=== PATIENT | female | born 1935 | race Caucasian/White ===

== ENCOUNTER → 2018-02-04 | Outpatient (CLI) | payer MEDICARE ==
[~2018-02-04] MED LIST: ALBU8.5H IH; AMIO200T47 PO; CALC-488 PO; CITA-157 PO; FLUINH INH; FLUT16SP19 NS; FURO-45 PO; GLUC1TAB13 PO; HYDR-2966 PO; METO-253 PO; MULT-865 PO; POTA-53 PO; WARF5TAB23 PO
[2018-02-04 14:18] LABS: PLATELET COUNT, AUTOMATED 205 K/uL (150-450)
== END ==
LOC: LAB 13:56
PROVIDERS: ATTEND Internal Medicine
DX: I48.91 Unspecified atrial fibrillation (principal); I10 Essential (primary) hypertension; I50.9 Heart failure, unspecified
CPT/HCPCS: 36415; 82040; 82247; 82310; 82374; 82435; 82565; 82947; 83880; 84075; 84132; 84155; 84295; 84439; 84443; 84450; 84460; 84520; 85025

== ENCOUNTER → 2018-02-18 | Outpatient (CLI) | payer MEDICARE ==
[2018-02-18 10:24] LABS: INR 2.06
== END ==
LOC: LAB 09:41
PROVIDERS: ATTEND Internal Medicine
DX: I50.9 Heart failure, unspecified (principal); I48.91 Unspecified atrial fibrillation; I10 Essential (primary) hypertension; I48.0 Paroxysmal atrial fibrillation
CPT/HCPCS: 36415; 82040; 82247; 82310; 82374; 82435; 82565; 82947; 83880; 84075; 84132; 84155; 84295; 84450; 84460; 84520; 85610

== ENCOUNTER → 2018-02-25 | Outpatient (CLI) | payer MEDICARE ==
[2018-02-25 08:48] LABS: PLATELET COUNT, AUTOMATED 165 K/uL (150-450)
[2018-02-25 08:51] LABS: INR 2.49
--- NOTE | 2018-02-25 14:00 | EKG ---
FACILITY: [facility] [place] PATIENT NAME: HERNANDEZ TORRES : [id number] MR: [id number] V: [id number] EXAM DATE: ORDERING PHYSICIAN: DK LAGUNAS TECHNOLOGIST: NADEGE Test Reason : AFIB Blood Pressure : / mmHG Vent. Rate : 056 BPM Atrial Rate : 056 BPM P-R Int : 212 ms QRS Dur : 072 ms QT Int : 480 ms P-R-T Axes : 086 056 067 degrees QTc Int : 463 ms Sinus bradycardia with 1st degree AV block Otherwise normal ECG No previous ECGs available Referred By: Confirmed By:
== END ==
LOC: LAB 08:27
PROVIDERS: ATTEND Internal Medicine
DX: R00.1 Bradycardia, unspecified (principal); I44.0 Atrioventricular block, first degree; I48.0 Paroxysmal atrial fibrillation; I10 Essential (primary) hypertension; I50.33 Acute on chronic diastolic (congestive) heart failure; E05.90 Thyrotoxicosis, unspecified without thyrotoxic crisis or storm
CPT/HCPCS: 36415; 82040; 82247; 82310; 82374; 82435; 82565; 82947; 83880; 84075; 84132; 84155; 84295; 84439; 84443; 84450; 84460; 84481; 84520; 85025; 85610

== ENCOUNTER → 2018-03-05 | Outpatient (CLI) | payer MEDICARE ==
--- NOTE | 2018-03-07 06:53 | RT HOLTER TEST ---
FACILITY: [facility] PATIENT NAME: HERNANDEZ TORRES : [id number] MR: [id number] V: [id number] EXAM DATE: ORDERING PHYSICIAN: DK LAGUNAS TECHNOLOGIST: MEHDI Hook-up date: 2018-03-05 10:41:00 Duration: 24:24:00 Test Indications: AFIB, CHF Medications: 28325 QRS complexes 1 Ventricular ectopics which represent <1 % of total QRS comp. 323 Supraventricular ectopics which represent <1 % of total QRS comp. * Paced QRS complexes which represent % of total QRS comp. VENTRICULAR ECTOPY 1 Isolated 0 Bigeminal Cycles 0 Couplets 0 Runs 0 Beats in Runs * Beats LONGEST at * BPM at :: -- * Beats FASTEST at * BPM at :: -- SUPRAVENTRICULAR ECTOPY 283 Isolated 3 Couplets 8 Runs 34 Beats in Runs 6 Beats LONGEST at 69 BPM at 10:58:59 2018-03-06 3 Beats FASTEST at 70 BPM at 11:02:36 2018-03-06 HEART RATES 37 MIN at 22:43:50 2018-03-05 57 AVG 87 MAX at 10:21:33 2018-03-06 LONGEST RR 2.144 secs at 01:56:18 2018-03-06 S-T LEVELS Channel 1 -12.800 mm MIN at 10:41:00 2018-03-05 -12.800 mm MAX at 10:41:00 2018-03-05 Channel 2 -12.800 mm MIN at 10:41:00 2018-03-05 -12.800 mm MAX at 10:41:00 2018-03-05 Channel 3 -12.800 mm MIN at 10:41:00 2018-03-05 -12.800 mm MAX at 10:41:00 2018-03-05 Sinus rhythm Ectopic atrial rhythm Confirmed by RICO ADAME ([id number]) on 03/07/2018 6:53:12 AM Referred By: Overread By: RICO ADAME
== END ==
LOC: RESP 03:01
PROVIDERS: ATTEND Internal Medicine
DX: I48.91 Unspecified atrial fibrillation (principal); I50.9 Heart failure, unspecified
CPT/HCPCS: 93225; 93226

== ENCOUNTER 2018-03-07 00:34 | Outpatient (RCR) | payer MEDICARE ==
--- NOTE | 2018-03-08 10:20 | RADIOLOGY IMAGING REPORT ---
FACILITY: [facility] [place] PATIENT NAME: Eryn Nickerson : 1935 MR: [id number] V: [id number] EXAM DATE: ORDERING PHYSICIAN: DK LAGUANS TECHNOLOGIST: Location: [facility] Patient: Eryn Nickerson : 1935 Visit/Account:[id number] Date of Sevice: 03/08/2018 THYROID UPTAKE MUTILPLE HISTORY: Hyperthyroidism TECHNIQUE: 369 microcuries I-123 were administered orally. Radioiodine uptake values were calculated at 24 hours following tracer administration. Gamma camera images were obtained of the neck in variou s orientations. COMPARISON: None FINDINGS: Thyroid radioiodine uptake at 24 hours is 0.8% (normal range 15-40 %). Thyroid radioiodine uptake at six hours is 0.4% (normal range 5-15%) Size and shape: The thyroid gland is not well seen due to minimal iodine uptake Homogeneity: Not well evaluated due to limited iodine uptake Nodules: None evident. IMPRESSION: Markedly abnormally low 24 hour thyroid uptake 0.8% and six hour thyroid uptake of 0.4%. Of note by history the patient is on amiodarone therapy for tachycardia which can negatively impact the imaging results. Report Dictated By: Parris Mora MD at 03/08/2018 10:13 AM Report E-Signed By: Parris Mora MD at 03/08/2018 10:16 AM WSN:[email or web address]
== END 2018-03-07 18:00 | disposition home or self-care (01) ==
LOC: RAD 00:34 → EDSTATUS 14:56 → RAD 18:00
PROVIDERS: ATTEND Internal Medicine
DX: E05.90 Thyrotoxicosis, unspecified without thyrotoxic crisis or storm (principal)
CPT/HCPCS: 78012; A9516

== ENCOUNTER → 2018-03-19 | Outpatient (CLI) | payer MEDICARE ==
[2018-03-19 10:55] LABS: INR 2.02
== END ==
LOC: LAB 10:12
PROVIDERS: ATTEND Internal Medicine
DX: I48.91 Unspecified atrial fibrillation (principal); I50.9 Heart failure, unspecified; E05.90 Thyrotoxicosis, unspecified without thyrotoxic crisis or storm
CPT/HCPCS: 36415; 82040; 82247; 82310; 82374; 82435; 82565; 82947; 84075; 84132; 84155; 84295; 84439; 84443; 84450; 84460; 84520; 85610

== ENCOUNTER → 2018-04-18 | Outpatient (CLI) | payer MEDICARE ==
[~2018-04-18] MED LIST changes: -AMIO200T47 PO; +AMIO200T49 PO; +B2/V1TAB5 PO; +CHOL10005 PO; +MULT-16 PO; +OXYGENHOME INH; +[UNRECOGNIZED DRUG - CODE] PO
[2018-04-18 11:25] LABS: INR 1.64
== END ==
LOC: LAB 10:58
PROVIDERS: ATTEND Internal Medicine
DX: I48.91 Unspecified atrial fibrillation (principal)
CPT/HCPCS: 36415; 85610

== ENCOUNTER 2018-05-27 13:45 | Outpatient (RCR) | payer MEDICARE ==
--- NOTE | 2018-05-06 17:15 | PT INITIAL EVALUATION ---
MEDICAL DIAGNOSIS: LBP, SI pain, R hip pain, imbalance TREATMENT DIAGNOSIS: Same DATE OF ONSET: 01/24/18 SUBJECTIVE: Eryn Nickerson presents to PT for R hip pain with first few steps after sitting, standing 10 minutes or walking 2 blocks. 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 She did well with PT for SI dysfunction. Lifting, walking, standing create R posterior hip pain, 8/10 pain scale, while sitting relieves it, 0/10. Oswestry Disability Index 24% impairment. Eryn denies radicular symptoms. Pain location is L posterior hip, L -S and described as ache. Pain scale is 4-8 on a ten point pain scale. REHAB PROBLEM LIST: Increased Pain Decreased ROM Decreased Strength Decreased Endurance Decreased Gait PREVIOUS MEDICAL HISTORY: Asthma, O2 after cardio conversion Feb, 2018 (aCarolfib), LBP, CPAP OCCUPATION: Retired, lives alone in [facility], single level, uses treadmill a little (O2), able to ambulate 2 blocks but then needs to stop while family and friends continue their walk. OBJECTIVE: Posture: Anterior R ilium, posterior L ilium, creating apparent R LE shortness. ROM: Lumbar AROM WNL. Hip PROM WNL with R hip IR mild hip symptoms. Strength: R quad 4/5, R hip flexor, hamstrings, ankle DF 5-/5, L LE 5-/5. Core strength 3-/5. Palpation: Painful L-S region, R posterior hip. Special Tests: Leg length inequality, L longer by ~1/2", long femur. Negative SLR, DTR's 2/3 Quads and Achilles tendons. R hip scour with mild pain with flexion/adduction. Tight hip flexors, IT bands. O2 at 2 l/min. 94%, HR 56 at rest. Mobility: Independent. Gait: Apparent short R LE. Balance: Single leg stand without imbalance. ASSESSMENT: Eryn Nickerson presents with LBP/SI pain creating R hip pain, altered gait with apparent leg length difference. I'll test balance after we get a more level pelvis. She's started on stretching and core strengthening HEP. Short Term Goals/Patient's Goals One month: Eryn walks 20 minutes with friends and family, R hip is pain free with the first 5 steps after sitting 20 minutes. Two months: Eryn stands 20 minutes with LBP 1-2, walks 30 minutes with R hip/LBP 2-12/15. PLAN: Patient to be seen for Manual Therapy Strengthening/condition Ice/Heat Range of Motion Spinal Stabilization Stretching Neuromuscular Re-ed Electrical Stim Posture/Body mechanics Home Exercise Program 2x/Week for 2 Months Thank you for this referral. If you have any questions, comments, or concerns about this report or plan, please contact me at . MTDD
[2018-06-24] MEDS ORDERED: ALB18R INH (14:14)
[2018-06-25] MEDS ORDERED: PRED20TA6 PO (14:51)
--- NOTE | 2018-07-10 17:09 | PT PLAN OF CARE ---
Physician: Dr. Rasheeda Turner Patient is being seen: 2x/week Therapist: Tracey Mcghee, PT Medical Diagnosis: LBP, SI pain, R hip pain, imbalance Treatment Diagnosis: Same Date of Onset: 01/24/18 Date of Initial Evaluation: 05/06/18 Date patient was last seen: 05/27/18 Number of treatments: 7 Number of cancellations/No shows: 0 INTERVENTIONS: Manual Therapy/STM/MET Strengthening/condition Ice/Heat Range of Motion Spinal Stabilization Stretching Neuromuscular Re-ed Electrical Stim Posture/Body mechanics Home Exercise Program GOALS/PATIENT'S GOAL: One month: Eryn walks 20 minutes with friends and family, R hip is pain free with the first 5 steps after sitting 20 minutes (all met). Two months: Eryn stands 20 minutes with LBP 1-2/10, walks 30 minutes with R hip/LBP 2-3/10. Patient Compliance: Good Prognosis: Excellent Reasons for discontinuing therapy: S: Eryn reported she could walk after sitting awhile without hip pain, can tidy up her room without LBP. She left for two weeks vacation after May 27 and hasn't returned our calls since then. Oswestry Disability Index at last visit was 15%. O: Posture: Even PSIS. Strength: Core strength 3+/5. Mobility: Independent. A/P: Eryn held alignment well and has discharged herself from PT. I'll close her PT case. Thank you. TRISTIAN
== END 2018-05-27 18:00 | disposition home or self-care (01) ==
LOC: PT 13:45
PROVIDERS: ATTEND Family Medicine
DX: M25.551 Pain in right hip (principal); R26.89 Other abnormalities of gait and mobility; M54.5 Low back pain; J45.909 Unspecified asthma, uncomplicated; Z99.89 Dependence on other enabling machines and devices
CPT/HCPCS: 97162

== ENCOUNTER → 2018-05-31 | Outpatient (CLI) | payer MEDICARE ==
[2018-05-31 10:43] LABS: INR 3.51
== END ==
LOC: LAB 10:03
PROVIDERS: ATTEND Nurse Practitioner Family
DX: I48.91 Unspecified atrial fibrillation (principal)
CPT/HCPCS: 36415; 85610

== ENCOUNTER → 2018-07-12 | Outpatient (CLI) | payer MEDICARE ==
[~2018-07-12] MED LIST changes: +ALB18R INH; +PRED20TA6 PO
[2018-07-12 10:05] LABS: INR 1.97
== END ==
LOC: LAB 09:46
PROVIDERS: ATTEND Family Medicine
DX: I48.91 Unspecified atrial fibrillation (principal)
CPT/HCPCS: 36415; 85610

== ENCOUNTER → 2018-07-29 | Outpatient (CLI) | payer MEDICARE ==
[2018-07-29 14:04] LABS: INR 1.19
== END ==
LOC: LAB 13:36
PROVIDERS: ATTEND Family Medicine
DX: Z51.81 Encounter for therapeutic drug level monitoring (principal)
CPT/HCPCS: 36415; 85610

== ENCOUNTER → 2018-08-05 | Outpatient (CLI) | payer MEDICARE ==
[2018-08-05 10:20] LABS: INR 2.11
== END ==
LOC: LAB 09:57
PROVIDERS: ATTEND Family Medicine
DX: Z51.81 Encounter for therapeutic drug level monitoring (principal)
CPT/HCPCS: 36415; 85610

== ENCOUNTER → 2018-08-12 | Outpatient (CLI) | payer MEDICARE ==
[~2018-08-12] MED LIST changes: +MIRT7.5T2 PO
[2018-08-12 15:35] LABS: PLATELET COUNT, AUTOMATED 204 K/uL (150-450)
== END ==
LOC: LAB 15:16
PROVIDERS: ATTEND Family Medicine
DX: E05.90 Thyrotoxicosis, unspecified without thyrotoxic crisis or storm (principal); R53.83 Other fatigue
CPT/HCPCS: 82040; 82247; 82310; 82374; 82435; 82565; 82947; 84075; 84132; 84155; 84295; 84439; 84443; 84450; 84460; 84520; 85025

== ENCOUNTER → 2018-09-09 | Outpatient (CLI) | payer MEDICARE ==
[~2018-09-09] MED LIST changes: +LISI5TAB25 PO
[2018-09-09 10:53] LABS: INR 1.66
== END ==
LOC: LAB 09:49
PROVIDERS: ATTEND Family Medicine
DX: Z51.81 Encounter for therapeutic drug level monitoring (principal)
CPT/HCPCS: 36415; 85610

== ENCOUNTER → 2018-09-23 | Outpatient (CLI) | payer MEDICARE ==
[2018-09-23 14:14] LABS: INR 1.98
== END ==
LOC: RESP 06:54
PROVIDERS: ATTEND Family Medicine
DX: Z51.81 Encounter for therapeutic drug level monitoring (principal); J44.9 Chronic obstructive pulmonary disease, unspecified; I10 Essential (primary) hypertension; Z79.01 Long term (current) use of anticoagulants
CPT/HCPCS: 36415; 82310; 82374; 82435; 82565; 82947; 84132; 84295; 84520; 85610; 94060; 94726; 94729

== ENCOUNTER → 2018-10-07 | Outpatient (CLI) | payer MEDICARE ==
[~2018-10-07] MED LIST changes: +CITA-156 PO; +LISI-362 PO
[2018-10-07 11:35] LABS: INR 1.98
== END ==
LOC: LAB 10:52
PROVIDERS: ATTEND Family Medicine
DX: Z51.81 Encounter for therapeutic drug level monitoring (principal); I50.9 Heart failure, unspecified
CPT/HCPCS: 82310; 82374; 82435; 82565; 82947; 84132; 84295; 84520; 85610

== ENCOUNTER → 2018-10-15 | Outpatient (CLI) | payer MEDICARE ==
--- NOTE | 2018-10-17 15:02 | RT HOLTER TEST ---
FACILITY: [facility] [place] PATIENT NAME: HERNANDEZ TORRES : [id number] MR: [id number] V: [id number] EXAM DATE: ORDERING PHYSICIAN: YUMIKO COLE TECHNOLOGIST: CRISTAL Obrien-jessica date: 2018-10-15 12:44:00 Duration: 47:59:00 Test Indications: BRADYCARDIA Medications: 983516 QRS complexes 108 Ventricular ectopics which represent <1 % of total QRS comp. 563 Supraventricular ectopics which represent <1 % of total QRS comp. * Paced QRS complexes which represent % of total QRS comp. VENTRICULAR ECTOPY 106 Isolated 0 Bigeminal Cycles 1 Couplets 0 Runs 0 Beats in Runs * Beats LONGEST at * BPM at :: -- * Beats FASTEST at * BPM at :: -- SUPRAVENTRICULAR ECTOPY 527 Isolated 12 Couplets 4 Runs 12 Beats in Runs 3 Beats LONGEST at 74 BPM at 03:08:56 2018-10-16 3 Beats FASTEST at 74 BPM at 03:08:56 2018-10-16 HEART RATES 45 MIN at 03:15:22 2018-10-16 65 AVG 119 MAX at 12:40:30 2018-10-16 LONGEST RR 1.864 secs at 02:47:03 2018-10-16 Channel 2 -12.800 mm MIN at 12:44:00 2018-10-15 -12.800 mm MAX at 12:44:00 2018-10-15 Channel 3 -12.800 mm MIN at 12:44:00 2018-10-15 -12.800 mm MAX at 12:44:00 2018-10-15 Occasional PVCs with one couplet. No runs were recorded. Frequent PACs with possible bursts of multifocal atrial tachycardia vs. atrial fibrillation. Artifact makes interpretation difficult. No pauses of more than two (2.0) seconds recorded. Confirmed by MIRA HERMOSILLO ([id number]) on 10/17/2018 3:01:53 PM Referred By: Overread By: MIRA HERMOSILLO
== END ==
LOC: RESP 01:30
PROVIDERS: ATTEND Internal Medicine
DX: I49.3 Ventricular premature depolarization (principal)
CPT/HCPCS: 93225; 93226

== ENCOUNTER → 2018-10-17 | Outpatient (CLI) | payer MEDICARE | LOC: LAB 14:20 | PROVIDERS: ATTEND Internal Medicine | DX: I48.1 Persistent atrial fibrillation (principal) | CPT/HCPCS: 85027 ==

== ENCOUNTER → 2018-10-17 | Outpatient (CLI) | payer MEDICARE ==
[2018-10-17 14:45] LABS: INR 1.99
== END ==
LOC: LAB 14:14
PROVIDERS: ATTEND Family Medicine
DX: Z51.81 Encounter for therapeutic drug level monitoring (principal); R79.89 Other specified abnormal findings of blood chemistry
CPT/HCPCS: 36415; 82310; 82374; 82435; 82565; 82947; 84132; 84295; 84520; 85610

== ENCOUNTER → 2018-11-05 | Outpatient (CLI) | payer MEDICARE ==
[2018-11-05 10:09] LABS: INR 1.96
== END ==
LOC: LAB 09:41
PROVIDERS: ATTEND Internal Medicine
DX: Z51.81 Encounter for therapeutic drug level monitoring (principal); Z79.01 Long term (current) use of anticoagulants; I48.0 Paroxysmal atrial fibrillation
CPT/HCPCS: 36415; 85610

== ENCOUNTER → 2018-11-12 | Outpatient (CLI) | payer MEDICARE ==
[2018-11-12 12:17] LABS: INR 2.44
== END ==
LOC: LAB 11:22
PROVIDERS: ATTEND Internal Medicine
DX: Z51.81 Encounter for therapeutic drug level monitoring (principal); Z79.01 Long term (current) use of anticoagulants; I48.0 Paroxysmal atrial fibrillation
CPT/HCPCS: 36415; 85610

== ENCOUNTER → 2018-11-20 | Outpatient (CLI) | payer MEDICARE ==
[2018-11-20 10:35] LABS: INR 2.7
== END ==
LOC: LAB 10:06
PROVIDERS: ATTEND Internal Medicine
DX: Z51.81 Encounter for therapeutic drug level monitoring (principal); Z79.01 Long term (current) use of anticoagulants; I48.0 Paroxysmal atrial fibrillation
CPT/HCPCS: 36415; 85610

== ENCOUNTER → 2018-11-28 | Outpatient (CLI) | payer MEDICARE ==
[2018-11-28 14:48] LABS: INR 3.08
== END ==
LOC: LAB 14:12
PROVIDERS: ATTEND Internal Medicine
DX: Z51.81 Encounter for therapeutic drug level monitoring (principal); I48.1 Persistent atrial fibrillation; Z79.01 Long term (current) use of anticoagulants
CPT/HCPCS: 36415; 85610

== ENCOUNTER → 2018-12-09 | Outpatient (CLI) | payer MEDICARE ==
[2018-12-09 14:23] LABS: INR 2.43
== END ==
LOC: LAB 13:58
PROVIDERS: ATTEND Internal Medicine
DX: I51.81 Takotsubo syndrome (principal); I48.0 Paroxysmal atrial fibrillation; Z79.01 Long term (current) use of anticoagulants
CPT/HCPCS: 36415; 85610

== ENCOUNTER → 2018-12-09 | Outpatient (CLI) | payer MEDICARE ==
--- NOTE | 2018-12-09 17:01 | RADIOLOGY IMAGING REPORT ---
FACILITY: [facility] PATIENT NAME: Eryn Nickerson : 1935 MR: [id number] V: [id number] EXAM DATE: ORDERING PHYSICIAN: BENNIE OMER TECHNOLOGIST: Location: [facility] Patient: Eryn Nickerson : 1935 Visit/Account:[id number] Date of Sevice: 12/09/2018 CT CHEST W/O CONTRAST History: Pulmonary nodule TECHNIQUE: Contiguous axial images were performed through the chest to the level of the adrenal gla nds. No IV contrast was administered. Coronal and sagittal reformatting was also performed.Dose Lower ing Technique One of the following dose optimization techniques was utilized in the performance of this exam: Autom ated exposure control; adjustment of the mA and/or kV according to the patient's size; or use of an i terative reconstruction technique. Specific details can be referenced in the facility's radiology C T exam operational policy. COMPARISON STUDIES: none. Lungs / Pleura: There is a 2 mm subpleural noncalcified nodule anterolateral aspect right upper lob e best seen on image 72 of series 4 There is a 2 mm noncalcified pulmonary nodule anterolateral aspect right upper lobe best seen on imag e 82. In the left lower lobe there is a 2 x 1.6 cm groundglass opacification best seen on image 190. No evidence of pleural effusions Mediastinum/nodes: The mediastinal structures are not ideally evaluated due to lack of intravenous c ontrast although no gross evidence of pathologically enlarged mediastinal lymph nodes are present. There is a 1.3 x 1.1 cm x 2.3 right supraclavicular lymph node present Heart and vessels: Dual lead cardiac electrodes are present. There are mild atherosclerotic calcifi cations in the thoracic aorta and branch vessels Musculoskeletal / Body wall: There are Schmorl's nodes noted at multiple levels and moderate spondy lotic changes There are bilateral thyroid nodules the largest is in the left lobe measuring 2.4 cm in diameter Upper abdomen: There is a tiny hiatal hernia IMPRESSION: There are two separate 2 mm noncalcified nodules in the right upper lobe there is a 2 x 1.6 cm ground glass opacification in the left lower lobe FLEISCHNER SOCIETY FOLLOW-UP GUIDELINES FOR NEWLY DETECTED INCIDENTAL NODULES IN PERSONS 35 YEARS OF AGE OR OLDER. *These recommendations do NOT apply to lung cancer screening, patients with immunosuppression or kandy ents with a known primary malignancy. MULTIPLE SOLID NODULES If nodule size is < 6 mm: * Low risk patient ? No routine follow-up. * High risk patient ? Optional CT at 12 months. If nodule size is 6-8 mm: * Low risk patient ? CT at 3-6 months, then consider CT at 18-24 months if no change. * High risk patient ? CT at 3-6 months, then CT at 18-24 months if no change. If nodule size is > 8 mm: * Low risk patient ? CT at 3-6 months, then consider CT at 18-24 months if no change. * High risk patient ? CT at 3-6 months, then consider CT at 18-24 months if no change. LOW RISK PATIENT: Minimal or absent history of tobacco use and of other known risk factors. HIGH RISK PATIENT: Tobacco use, family history of lung cancer, upper pulmonary lobe location of nodul e, presence of emphysema, pulmonary fibrosis, older age. Katya H, Rossy DP, Sweetie JM, et al. Guidelines for Management of Incidental Pulmonary Nodules Dete cted on CT Images: From the Fleischner Society 2017. Radiology. uchnipn Is a 1.3 x 1.1 x 2.3 cm right supraclavicular lymph node. This may be reactive however follow-up rec ommended Bilateral thyroid nodules for which thyroid ultrasound is recommended Report Dictated By: Parris Mora MD at 12/09/2018 4:42 PM Report E-Signed By: Parris Mora MD at 12/09/2018 4:56 PM CALDERONN:ELIZABETH
== END ==
LOC: CT 00:44
PROVIDERS: ATTEND Internal Medicine
DX: K44.9 Diaphragmatic hernia without obstruction or gangrene (principal); I25.10 Atherosclerotic heart disease of native coronary artery without angina pectoris; Z95.0 Presence of cardiac pacemaker; R91.8 Other nonspecific abnormal finding of lung field; E04.2 Nontoxic multinodular goiter; M47.899 Other spondylosis, site unspecified; I70.0 Atherosclerosis of aorta
CPT/HCPCS: 71250

== ENCOUNTER → 2018-12-23 | Outpatient (CLI) | payer MEDICARE ==
[2018-12-23 11:04] LABS: INR 2.22
== END ==
LOC: LAB 10:45
PROVIDERS: ATTEND Internal Medicine
DX: Z51.81 Encounter for therapeutic drug level monitoring (principal); Z79.01 Long term (current) use of anticoagulants; I48.0 Paroxysmal atrial fibrillation
CPT/HCPCS: 36415; 85610

== ENCOUNTER → 2019-01-13 | Outpatient (CLI) | payer MEDICARE ==
[~2019-01-13] MED LIST changes: +BUDRES25 INH; +IPRA3AMP10 IH
[2019-01-13 10:47] LABS: PLATELET COUNT, AUTOMATED 191 K/uL (150-450)
== END ==
LOC: LAB 10:25
PROVIDERS: ATTEND Family Medicine
DX: E05.90 Thyrotoxicosis, unspecified without thyrotoxic crisis or storm (principal); I10 Essential (primary) hypertension
CPT/HCPCS: 36415; 82310; 82374; 82435; 82565; 82947; 84132; 84295; 84439; 84443; 84520; 85025

== ENCOUNTER → 2019-01-13 | Outpatient (CLI) | payer MEDICARE | LOC: LAB 10:22 | PROVIDERS: ATTEND Internal Medicine | DX: Z51.81 Encounter for therapeutic drug level monitoring (principal); I48.0 Paroxysmal atrial fibrillation; Z79.01 Long term (current) use of anticoagulants | CPT/HCPCS: 85610 ==

== ENCOUNTER 2019-01-21 09:00 | Outpatient (RCR) | payer MEDICARE | END 2019-02-03 | LOC: CARD 09:00 | PROVIDERS: ATTEND Family Medicine | DX: J45.909 Unspecified asthma, uncomplicated (principal); R09.02 Hypoxemia | CPT/HCPCS: G0424 ×18 ==

== ENCOUNTER → 2019-01-21 | Outpatient (CLI) | payer MEDICARE ==
[2019-01-21 13:42] LABS: INR 2.97
== END ==
LOC: LAB 12:02
PROVIDERS: ATTEND Internal Medicine
DX: Z51.81 Encounter for therapeutic drug level monitoring (principal); I48.0 Paroxysmal atrial fibrillation; Z79.01 Long term (current) use of anticoagulants
CPT/HCPCS: 36415; 85610

== ENCOUNTER → 2019-02-12 | Outpatient (CLI) | payer MEDICARE ==
[2019-02-12 11:14] LABS: INR 3.56
== END ==
LOC: LAB 10:42
PROVIDERS: ATTEND Internal Medicine
DX: Z51.81 Encounter for therapeutic drug level monitoring (principal); Z79.01 Long term (current) use of anticoagulants; I48.0 Paroxysmal atrial fibrillation
CPT/HCPCS: 36415; 85610

== ENCOUNTER → 2019-02-13 | Outpatient (CLI) | payer MEDICARE ==
--- NOTE | 2019-02-13 12:32 | RADIOLOGY IMAGING REPORT ---
FACILITY: [facility] - [place] [place] PATIENT NAME: Eryn Nickerson : 1935 MR: [id number] V: [id number] EXAM DATE: ORDERING PHYSICIAN: BREANNE YANG TECHNOLOGIST: Location: [facility] [place] Patient: Eryn Nickerson : 1935 Visit/Account:[id number] Date of Sevice: 02/13/2019 HAND COMPLETE LEFT Indication: Pain after fall Comparison: None Available. Findings: No evidence of fracture, dislocation, or acute osseous abnormality of the left hand. There is severe degenerative change present at the first CMC with associated large osteophytes and mi ld lateral subluxation. Mild degenerative changes are seen involving the interphalangeal joints. No evidence of radiopaque foreign body. IMPRESSION: 1.No acute osseous abnormality of the left hand 2. 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
== END ==
LOC: RAD 11:06
PROVIDERS: ATTEND Nurse Practitioner Primary Care
DX: M79.642 Pain in left hand (principal)

== ENCOUNTER → 2019-02-25 | Outpatient (CLI) | payer MEDICARE ==
[2019-02-25 11:45] LABS: INR 3.19
== END ==
LOC: LAB 11:13
PROVIDERS: ATTEND Internal Medicine
DX: Z51.81 Encounter for therapeutic drug level monitoring (principal); Z79.01 Long term (current) use of anticoagulants; I48.0 Paroxysmal atrial fibrillation
CPT/HCPCS: 36415; 85610

== ENCOUNTER → 2019-03-05 | Outpatient (CLI) | payer MEDICARE ==
[2019-03-05 15:59] LABS: PLATELET COUNT, AUTOMATED 192 K/uL (150-450)
== END ==
LOC: LAB 15:38
PROVIDERS: ATTEND Family Medicine
DX: R10.9 Unspecified abdominal pain (principal); R10.13 Epigastric pain; R10.31 Right lower quadrant pain
CPT/HCPCS: 36415; 82040; 82150; 82247; 82310; 82374; 82435; 82565; 82947; 83690; 84075; 84132; 84155; 84295; 84450; 84460; 84520; 85025

== ENCOUNTER → 2019-03-06 | Outpatient (CLI) | payer MEDICARE | LOC: LAB 12:56 | PROVIDERS: ATTEND Family Medicine | DX: R10.9 Unspecified abdominal pain (principal); R10.13 Epigastric pain; R10.31 Right lower quadrant pain | CPT/HCPCS: 82274 ==

== ENCOUNTER → 2019-03-19 | Outpatient (CLI) | payer MEDICARE ==
[~2019-03-19] MED LIST changes: -CALC-488 PO; +CALC-743 PO
[2019-03-19 12:02] LABS: PLATELET COUNT, AUTOMATED 189 K/uL (150-450)
== END ==
LOC: LAB 11:44
PROVIDERS: ATTEND Nurse Practitioner Primary Care
DX: R10.9 Unspecified abdominal pain (principal)
CPT/HCPCS: 36415; 82040; 82150; 82247; 82310; 82374; 82435; 82565; 82947; 83690; 84075; 84132; 84155; 84295; 84450; 84460; 84520; 85025

== ENCOUNTER → 2019-03-26 | Outpatient (CLI) | payer MEDICARE | LOC: LAB 13:06 | PROVIDERS: ATTEND Internal Medicine | DX: Z51.81 Encounter for therapeutic drug level monitoring (principal); I48.0 Paroxysmal atrial fibrillation; Z79.01 Long term (current) use of anticoagulants | CPT/HCPCS: 36415; 85610 ==

== ENCOUNTER → 2019-04-01 | Outpatient (CLI) | payer MEDICARE ==
[~2019-04-01] MED LIST changes: +IOPAMIDOL 76% 100 ML INFUS BTL 100 ML ONE
--- NOTE | 2019-04-01 11:59 | RADIOLOGY IMAGING REPORT ---
FACILITY: [facility] [place] PATIENT NAME: Eryn Nickerson : 1935 MR: [id number] V: [id number] EXAM DATE: ORDERING PHYSICIAN: BREANNE YANG TECHNOLOGIST: [facility] Patient: Eryn Nickerson : 1935 Visit/Account:[id number] Date of Sevice: 04/01/2019 CT ABDOMEN PELVIS W/ CON HISTORY: Lower abdominal pain TECHNIQUE: Following administration of IV contrast contiguous axial images acquired through the abdom en/pelvis. Coronal and sagittal reformatting also performed.Dose Lowering Technique One of the following dose optimization techniques was utilized in the performance of this exam: Autom ated exposure control; adjustment of the mA and/or kV according to the patient's size; or use of an i terative reconstruction technique. Specific details can be referenced in the facility's radiology C T exam operational policy. CONTRAST: 75 mL Isovue-370 COMPARISON: CT chest December 09, 2018 FINDINGS: Visualized lung bases: There is a 1.9 x 1.3 cm incompletely imaged groundglass opacity in the left lo wer lobe. This is relatively unchanged when compared to the prior study Hepatobiliary: Negative. Spleen: Small calcification may represent a granuloma Adrenals: Negative. Pancreas: Negative. Kidneys ureters or bladder: Tiny hypodensities in the right kidney likely representing cysts although are too small to characterize Genitalia: Hysterectomy GI: There is scattered diverticula throughout the colon although no CT evidence of acute diverticuli tis Vessels/spaces/nodes: Moderate to severe atherosclerotic calcifications throughout the abdomen and p matty Bones/soft tissues: Spondylotic changes and Schmorl's nodes in the thoracolumbar spine Additional findings: None pertinent. IMPRESSION: Incompletely imaged is a 1.9 x 1.2 cm groundglass nodule in the left lower lobe that appears relative ly unchanged when compared to the prior study. FLEISCHNER SOCIETY FOLLOW-UP GUIDELINES FOR NEWLY DETECTED INCIDENTAL NODULES IN PERSONS 35 YEARS OF AGE OR OLDER. *These recommendations do NOT apply to lung cancer screening, patients with immunosuppression or kandy ents with a known primary malignancy. SOLITARY SUBSOLID NODULE GROUND GLASS: If nodule size is < 6 mm: * No routine follow-up. If nodule size is > or equal to 6 mm: * CT at 6-12 months to confirm persistence, then CT every 2 years until 5 years if unchanged. PART SOLID: If nodule size is < 6 mm: * No routine follow-up. If nodule size is > or equal to 6 mm with solid component < 6 mm: * CT at 3-6 months to confirm persistence. If unchanged and solid component remains < 6 mm, annual CT for 5 years. If nodule size is > or equal to 6 mm with solid component > or equal to 6 mm: * CT at 3-6 months to confirm persistence. If unchanged, should be considered highly suspicious. LOW RISK PATIENT: Minimal or absent history of tobacco use and of other known risk factors. HIGH RISK PATIENT: Tobacco use, family history of lung cancer, upper pulmonary lobe location of nodul e, presence of emphysema, pulmonary fibrosis, older age. Katya H, Rossy DP, Sweetie WILSON, et al. Guidelines for Management of Incidental Pulmonary Nodules Dete cted on CT Images: From the Fleischner Society 2017. Radiology. [facility] Colonic diverticulosis although no CT evidence of acute diverticulitis Moderate to severe atherosclerotic calcifications Report Dictated By: Parris Mora MD at 04/01/2019 11:42 AM Report E-Signed By: Parris Mora MD at 04/01/2019 11:53 AM SEBASTIEN:ELIZABETH
== END ==
LOC: CT 07:48
PROVIDERS: ATTEND Nurse Practitioner Primary Care
DX: R91.1 Solitary pulmonary nodule (principal)
CPT/HCPCS: 74177; Q9967

== ENCOUNTER → 2019-04-01 | Outpatient (CLI) | payer MEDICARE ==
[~2019-04-01] MED LIST changes: +DEXTROSE 5%(*) 100 ML BAG 100 ML IVPB PRN; -IOPAMIDOL 76% 100 ML INFUS BTL 100 ML ONE; +LIDOCAINE/SOD BICARB 8.4% SYR ID PRN; +NS(*) 0.9% 100 ML BAG 100 ML IVPB PRN
[2019-04-01 09:46] VITALS: BP 133/62
[2019-04-01] MEDS: NS(*) 0.9% 500 ML BAG 500 ML IV PRN ×2 (10:00→11:15)
[2019-04-01 11:52] VITALS: BP 149/59
== END ==
LOC: SPU 07:42
PROVIDERS: ATTEND Nurse Practitioner Primary Care
DX: Z29.8 Encounter for other specified prophylactic measures (principal)
CPT/HCPCS: 96360; J7040

== ENCOUNTER → 2019-04-09 | Outpatient (CLI) | payer MEDICARE ==
[~2019-04-09] MED LIST changes: -DEXTROSE 5%(*) 100 ML BAG 100 ML IVPB PRN; -LIDOCAINE/SOD BICARB 8.4% SYR ID PRN; -NS(*) 0.9% 100 ML BAG 100 ML IVPB PRN
[2019-04-09 13:58] LABS: INR 2.16
== END ==
LOC: LAB 13:38
PROVIDERS: ATTEND Internal Medicine
DX: Z51.81 Encounter for therapeutic drug level monitoring (principal); I48.0 Paroxysmal atrial fibrillation; Z79.01 Long term (current) use of anticoagulants
CPT/HCPCS: 36415; 85610

== ENCOUNTER → 2019-04-24 | Outpatient (CLI) | payer MEDICARE ==
[2019-04-24 13:49] LABS: INR 2.29
== END ==
LOC: LAB 13:23
PROVIDERS: ATTEND Internal Medicine
DX: Z51.81 Encounter for therapeutic drug level monitoring (principal); I48.0 Paroxysmal atrial fibrillation; Z79.01 Long term (current) use of anticoagulants
CPT/HCPCS: 36415; 85610

== ENCOUNTER → 2019-05-12 | Outpatient (CLI) | payer MEDICARE ==
[2019-05-12 15:16] LABS: INR 2.12
== END ==
LOC: LAB 13:02
PROVIDERS: ATTEND Internal Medicine
DX: Z51.81 Encounter for therapeutic drug level monitoring (principal); Z79.01 Long term (current) use of anticoagulants; I48.0 Paroxysmal atrial fibrillation
CPT/HCPCS: 36415; 85610